=== PATIENT | male | born 1955 | race Caucasian/White ===

== ENCOUNTER 2017-08-22 19:07 | Emergency (ER) | payer OTHER ==
[2017-08-22 20:08] VITALS: BP 117/70
--- NOTE | 2017-08-22 20:36 | ED ---
Abdominal Pain/Male - HPI Summary HPI Summary: 62 yr old male with history of Colon Cancer and Colostomy for 22 years. yesterday began to get swelling around his ostomy site and redness as well. he has fever yesterday. Today not. He could not get in to see his primary today so he came here. he has no other complaints. he has had no change in ostomy output the past day. - History of Current Complaint Chief Complaint: Amina Stated Complaint: REDNESS/PAIN AROUND COLOSTOMY SITE Time Seen by Provider: 08/22/17 20:24 Pain Intensity: 6 - Allergies/Home Medications Allergies/Adverse Reactions: Allergies Allergy/AdvReac Type Severity Reaction Status Date / Time No Known Allergies Allergy Verified 08/22/17 19:56 Home Medications: Home Medications Atorvastatin* [Lipitor*] 0.5 mg PO DAILY 08/22/17 [History Confirmed 08/22/17] Blood Pressure Med 1 tab PO DAILY 08/22/17 [History Confirmed 08/22/17] Levothyroxine TAB* [Synthroid TAB*] 150 mcg PO DAILY 08/22/17 [History Confirmed 08/22/17] Multivitamin [Multiple Vitamins] 1 tab PO DAILY 08/22/17 [History Confirmed ] Pain Medication 600 mg PO BEDTIME 08/22/17 [History Confirmed 08/22/17] PMH/Surg Hx/FS Hx/Imm Hx Endocrine/Hematology History: Reports: Hx Thyroid Disease Cardiovascular History: Reports: Hx Hypertension - Cancer History Cancer Type, Location and Year: COLON CANCER - Surgical History Surgery Procedure, Year, and Place: COLOSTOMY Infectious Disease History: Yes Infectious Disease History: Reports: Hx Hepatitis Denies: Traveled Outside the [place] in Last 30 Days - Family History Known Family History: Positive: None - Social History Alcohol Use: Occasionally Substance Use Type: Reports: None Smoking Status (MU): Never Smoked Tobacco Review of Systems Positive: Chills Positive: Abdominal Pain, Other - colostomy redness skin around All Other Systems Reviewed And Are Negative: Yes Physical Exam Triage Information Reviewed: Yes Vital Signs On Initial Exam: Initial Vitals Temp Pulse Resp BP Pulse Ox 99.6 F 106 24 117/70 96 08/22/17 20:01 08/22/17 20:01 08/22/17 20:01 08/22/17 20:01 08/22/17 20:01 Vital Signs Reviewed: Yes Appearance: Positive: Well-Appearing, No Pain Distress Skin: Positive: Other - cellulitis rather extensive around the colostomy bag. Eyes: Positive: EOMI ENT: Positive: Normal ENT inspection Neck: Positive: Nontender Respiratory/Lung Sounds: Positive: Clear to Auscultation, Breath Sounds Present Cardiovascular: Positive: RRR. Negative: Murmur Abdomen Description: Positive: Distended - around the colostomy bag area with redness. Musculoskeletal: Positive: Strength/ROM Intact Neurological: Positive: Sensory/Motor Intact, Alert, Oriented to Person Place, Time, CN Intact II-III Psychiatric: Positive: Normal - [place] Coma Scale Best Eye Response: 4 - Spontaneous Best Motor Response: 6 - Obeys Commands Best Verbal Response: 5 - Oriented Coma Scale Total: 15 Diagnostics - Vital Signs Vital Signs Temp Pulse Resp BP Pulse Ox 08/22/17 20:01 99.6 F 106 24 117/70 96 - Laboratory Lab Statement: Any lab studies that have been ordered have been reviewed, and results considered in the medical decision making process. Abdominal Pain Fem Course/Dx - Course Course Of Treatment: 62 yr old male with cellulitis abdominal wall around colostomy site with swelling as well. He refuses ambulance transport, but has his daughter with him who will drive him to the ER less than a mile away. he is walking with no problem and appears stable. - Diagnoses Provider Diagnoses: Cellulitis of left abdominal wall, Hernia of anterior abdominal wall Discharge - Sign-Out/Discharge Documenting (check all that apply): Discharge/Admit/Transfer - Discharge Plan Condition: Good Disposition: [facility]ANS [facility] CARE FAC Patient Education Materials: Cellulitis (ED), Ventral Hernia (ED) Referrals: Madhav Vaca MD [Primary Care Provider] - Additional Instructions: You need to go to the ER immediately upon leaving here. You have declined an ambulance, but you need to have your daughter drive you right away to the ER. - Billing Disposition and Condition Condition: GOOD Disposition: [facility]ALA
== END 2017-08-22 20:36 | disposition short-term general hospital (02) ==
LOC: UCCORT 19:07
DX: L03.311 Cellulitis of abdominal wall (principal); K43.9 Ventral hernia without obstruction or gangrene; Z93.3 Colostomy status; Z85.038 Personal history of other malignant neoplasm of large intestine
CPT/HCPCS: 99212; G0463